=== PATIENT | male | born 1950 | race African-American/Black ===

== ENCOUNTER 2021-10-19 19:17 | Inpatient (IN) | payer MEDICARE, MEDICAID ==
[~2021-10-19] VITALS: Ht 177.8 cm; Wt 64.0 kg
[2021-10-19] MEDS ORDERED: LEVETIRACETAM 500MG PREMIX 100 ML IV ONE (20:00)
[2021-10-19] MEDS ORDERED: SODIUM CHLORIDE 0.9% 1,000 ML IV ONE ×2 (20:00)
[2021-10-19 21:02] LABS: BG BASE EXCESS 0.5 mmol/L (-2.0-2.0); BG CARBOXYHEMOGLOBIN 2.2 % (0.5-1.5); BG DEOXYHEMOGLOBIN 4.3 % (0.0-5.0); BG FRACTION INSPIRED OXYGEN 21; BG HCO3 ACT 25.9 mmol/L (22.0-26.0); BG METHEMOGLOBIN 0.2 % (0.0-1.5); BG OXYGEN SATURATION 95.6 % (92.0-98.5); BG OXYHEMOGLOBIN 93.3 % (94.0-97.0); BG PCO2 44.3 mmHg (35.0-45.0); BG PH 7.385 (7.350-7.450); BG PO2 81.6 mmHg (75.0-100.0); BG SAMPLE SITE RIGHT RADIAL; BG TOTAL HEMOGLOBIN 14.6 g/dL (12.0-18.0); BG TOTAL RESPIRATORY RATE 20 b/min; BG VENT MODE ROOM AIR
[2021-10-19 21:19] LABS: BASOPHILS % 0.4 % (0.0-2.0); CHLORIDE 107 mEq/L (98-107); EOSINOPHILS % 0.4 % (0.0-5.0); HEMOGLOBIN. 14.2 g/dL (14.0-18.0); LYMPHOCYTES % 11.8 % (20.0-50.0); MEAN CORPUSCULAR HEMOGLOBIN 31.4 pg (28.0-32.0); MEAN CORPUSCULAR VOLUME 94.7 fL (80.0-94.0); NEUTROPHILS % 78.4 % (40.0-76.0); RED BLOOD CELL COUNT 4.54 mill/uL (4.7-6.1); RED CELL DISTRIBUTION WIDTH 13.2 % (11.6-14.6)
[2021-10-19 21:24] LABS: ETHANOL BLOOD < 10 mg/dL
[2021-10-19 21:32] LABS: CARBAMAZEPINE < 0.5 ug/mL (4-12); PHENOBARBITAL < 2.1 ug/mL (15.0-40.0)
[2021-10-19 21:42] LABS: VALPROIC ACID < 3.0 ug/mL (50-100)
[2021-10-19 21:55] LABS: CLARITY URINE CLOUDY (CLEAR); COLOR URINE YELLOW (YELLOW); KETONES URINE TRACE (NEGATIVE); LEUKOCYTE ESTERASE URINE 2+ (NEGATIVE); NITRITE URINE POSITIVE (NEGATIVE); OCCULT BLOOD URINE TRACE (NEGATIVE); PH URINE 5.5 (4.5-8.0); PROTEIN URINE 1+ (NEGATIVE); SPECIFIC GRAVITY URINE 1.023 (1.005-1.030)
[2021-10-19 21:58] LABS: MEAN PLATELET VOLUME 8.3 fl (7.4-10.4); PLATELET 188 x1000/uL (130-400)
[2021-10-19 22:06] LABS: *COCAINE SCREEN URINE NEGATIVE (NEGATIVE)
[2021-10-19 22:07] LABS: *AMPHETAMINES SCREEN URINE NEGATIVE (NEGATIVE); *BARBITURATES SCREEN URINE NEGATIVE (NEGATIVE); CANNABINOID URINE SCREEN NEGATIVE (NEGATIVE); METHADONE URINE SCREEN NEGATIVE (NEGATIVE); PHENCYCLIDINE URINE SCREEN NEGATIVE (NEGATIVE)
[2021-10-19 22:08] LABS: *BENZODIAZEPINES SCREEN URINE PRESUMTIVE POSITIVE (NEGATIVE); OPIATES URINE SCREEN NEGATIVE (NEGATIVE)
[2021-10-20] MEDS ORDERED: HYDROCODONE/ACETAMINOPHEN 5/325MG TABLET PO PRN (00:45)
[2021-10-20] MEDS ORDERED: CLONIDINE 0.1MG TABLET PO PRN (00:45)
[2021-10-20] MEDS ORDERED: ONDANSETRON HCL 4MG/2ML INJ IV PRN (00:45)
[2021-10-20] MEDS ORDERED: MAGNESIUM/ALUMINUM HYDROXIDE/SIMETHICONE 30ML UDC PO PRN (00:45)
[2021-10-20] MEDS ORDERED: DOCUSATE SODIUM 100MG CAPSULE PO PRN (00:45)
[2021-10-20] MEDS ORDERED: ACETAMINOPHEN 325MG TABLET PO PRN (00:45)
[2021-10-20] MEDS ORDERED: LORAZEPAM 2MG/ML CPJ IV PRN (00:45)
[2021-10-20] MEDS ORDERED: IPRATROPIUM/ALBUTEROL 0.5-3(2.5)MG/3ML NEB NEB PRN (00:45)
[2021-10-20] MEDS ORDERED: NALOXONE HCL 0.4MG/ML VIAL IV PRN (01:30)
[2021-10-20 04:32] LABS: CHLORIDE 109 mEq/L (98-107)
[2021-10-20 04:42] LABS: CREATINE KINASE 754 IU/L (39-308)
[2021-10-20 04:43] LABS: CREATINE KINASE MB FRACTION 8.6 ng/mL (0.5-3.6)
[2021-10-20] MEDS: LEVETIRACETAM 500MG TABLET PO SCH ×2 (09:08→21:11)
[2021-10-20] MEDS: ENOXAPARIN 40MG/0.4ML SYR SUBCUT SCH (09:09)
[2021-10-20] MEDS ORDERED: CEFTRIAXONE 1 G PREMIX 50 ML IV SCH (15:30)
[2021-10-20] MEDS: SODIUM CHLORIDE 0.45% 1,000 ML IV SCH (15:39)
[2021-10-20 16:12] VITALS: BP 156/98
[2021-10-20] MEDS ORDERED: AMLO10TA80 PO (18:02)
[2021-10-20] MEDS ORDERED: OLAN20TA34 PO (18:02)
[2021-10-20] MEDS ORDERED: DIVA125C2 MT (18:02)
[2021-10-20 20:00] VITALS: BP_SYST 100; BP_SYST 153; BP_DIAS 69; BP_DIAS 75
[2021-10-21] VITALS: BP 156/94
[2021-10-21 01:00] LABS: CREATINE KINASE 811 IU/L (39-308)
[2021-10-21 01:01] LABS: CREATINE KINASE MB FRACTION 6.1 ng/mL (0.5-3.6)
[2021-10-21] MEDS: SODIUM CHLORIDE 0.45% 1,000 ML IV SCH ×2 (03:21→16:30)
[2021-10-21 03:59] VITALS: BP 150/80
[2021-10-21 08:00] VITALS: BP 154/99
[2021-10-21] MEDS: LEVETIRACETAM 500MG TABLET PO SCH ×2 (08:52→21:13)
[2021-10-21] MEDS: ENOXAPARIN 40MG/0.4ML SYR SUBCUT SCH ×2 (08:53→08:55)
[2021-10-21 12:00] VITALS: BP 151/98
[2021-10-21] MEDS: AMLODIPINE 10MG TABLET PO SCH (12:20)
[2021-10-21] MEDS: OLANZAPINE 10MG TABLET PO SCH (12:21)
[2021-10-21] MEDS: DIVALPROEX SODIUM 125MG DR TABLET PO SCH ×2 (12:21→21:13)
[2021-10-21 16:00] VITALS: BP 104/69
[2021-10-21] MEDS: CEFTRIAXONE 1,000 MG in DEXTROSE 5% WATER 50 ML IV SCH (16:31)
[2021-10-21 20:00] VITALS: BP 126/70
[2021-10-22] VITALS (7 sets, daily range): BP systolic 115–136; BP diastolic 76–91
[2021-10-22] MEDS: SODIUM CHLORIDE 0.45% 1,000 ML IV SCH ×2 (04:23→16:31)
[2021-10-22] MEDS: ENOXAPARIN 40MG/0.4ML SYR SUBCUT SCH (09:00)
[2021-10-22] MEDS: OLANZAPINE 10MG TABLET PO SCH (09:41)
[2021-10-22] MEDS: LEVETIRACETAM 500MG TABLET PO SCH ×2 (09:41→20:42)
[2021-10-22] MEDS: AMLODIPINE 10MG TABLET PO SCH (09:42)
[2021-10-22] MEDS: DIVALPROEX SODIUM 125MG DR TABLET PO SCH ×2 (09:44→20:42)
[2021-10-22] MEDS: CEFTRIAXONE 1,000 MG in DEXTROSE 5% WATER 50 ML IV SCH (16:00)
[2021-10-23 04:00] VITALS: BP 143/96
[2021-10-23] MEDS: SODIUM CHLORIDE 0.45% 1,000 ML IV SCH ×2 (05:45→18:15)
[2021-10-23 08:00] VITALS: BP 139/91
[2021-10-23] MEDS: OLANZAPINE 10MG TABLET PO SCH ×2 (09:00→09:05)
[2021-10-23] MEDS: DIVALPROEX SODIUM 125MG DR TABLET PO SCH ×3 (09:00→20:18)
[2021-10-23] MEDS: LEVETIRACETAM 500MG TABLET PO SCH ×3 (09:00→20:18)
[2021-10-23] MEDS: AMLODIPINE 10MG TABLET PO SCH ×2 (09:00→09:06)
[2021-10-23] MEDS: ENOXAPARIN 40MG/0.4ML SYR SUBCUT SCH ×2 (09:00→09:06)
[2021-10-23 12:00] VITALS: BP 133/79
[2021-10-23] MEDS: CHLORPROMAZINE HCL 10 MG TABLET PO SCH ×2 (15:16→20:18)
[2021-10-23 16:00] VITALS: BP 142/97
[2021-10-23] MEDS: CEFTRIAXONE 1,000 MG in DEXTROSE 5% WATER 50 ML IV SCH (16:00)
[2021-10-23 20:00] VITALS: BP 144/92
[2021-10-24] VITALS: BP 141/75
[2021-10-24 04:00] VITALS: BP 153/88
[2021-10-24] MEDS: CHLORPROMAZINE HCL 10 MG TABLET PO SCH ×2 (05:54→17:41)
[2021-10-24] MEDS: SODIUM CHLORIDE 0.45% 1,000 ML IV SCH ×2 (06:45→19:15)
[2021-10-24 08:02] VITALS: BP 162/99
[2021-10-24] MEDS: LEVETIRACETAM 500MG TABLET PO SCH ×2 (08:27→20:49)
[2021-10-24] MEDS: DIVALPROEX SODIUM 125MG DR TABLET PO SCH ×2 (08:27→20:49)
[2021-10-24] MEDS: OLANZAPINE 10MG TABLET PO SCH (08:27)
[2021-10-24] MEDS: ENOXAPARIN 40MG/0.4ML SYR SUBCUT SCH (08:27)
[2021-10-24] MEDS: AMLODIPINE 10MG TABLET PO SCH (08:27)
[2021-10-24 12:50] VITALS: BP 134/85
[2021-10-24 15:59] VITALS: BP 146/85
[2021-10-24 16:02] LABS: HEMOGLOBIN. 14.6 g/dL (14.0-18.0)
[2021-10-24 16:03] LABS: BASOPHILS % 0.4 % (0.0-2.0); EOSINOPHILS % 1.1 % (0.0-5.0); HEMATOCRIT. 43.7 % (42.0-52.0); LYMPHOCYTES % 30.2 % (20.0-50.0); MEAN CORPUSCULAR HEMOGLOBIN 31.7 pg (28.0-32.0); MEAN PLATELET VOLUME 8.2 fl (7.4-10.4); MONOCYTES % 13.7 % (2.0-8.0); NEUTROPHILS % 54.6 % (40.0-76.0); PLATELET 248 x1000/uL (130-400); RED CELL DISTRIBUTION WIDTH 13.3 % (11.6-14.6)
[2021-10-24 16:32] LABS: CHLORIDE 107 mEq/L (98-107)
[2021-10-24 20:00] VITALS: BP 132/91
[2021-10-25] VITALS: BP 131/86
[2021-10-25 04:00] VITALS: BP 148/95
[2021-10-25] MEDS: SODIUM CHLORIDE 0.45% 1,000 ML IV SCH ×2 (07:16→19:58)
[2021-10-25 07:30] VITALS: BP 157/93
[2021-10-25] MEDS: CHLORPROMAZINE HCL 10 MG TABLET PO SCH ×2 (08:02→18:32)
[2021-10-25] MEDS: OLANZAPINE 10MG TABLET PO SCH (08:02)
[2021-10-25] MEDS: DIVALPROEX SODIUM 125MG DR TABLET PO SCH ×2 (08:02→20:05)
[2021-10-25] MEDS: LEVETIRACETAM 500MG TABLET PO SCH ×2 (08:02→20:05)
[2021-10-25] MEDS: AMLODIPINE 10MG TABLET PO SCH (08:02)
[2021-10-25] MEDS: ENOXAPARIN 40MG/0.4ML SYR SUBCUT SCH (08:03)
[2021-10-25 12:33] VITALS: BP 142/97
[2021-10-25 15:31] VITALS: BP 126/84
[2021-10-25 20:00] VITALS: BP 138/87
[2021-10-26] VITALS: BP 119/78
[2021-10-26 04:00] VITALS: BP 128/86
[2021-10-26 08:08] VITALS: BP 131/94
[2021-10-26] MEDS: OLANZAPINE 10MG TABLET PO SCH (09:34)
[2021-10-26] MEDS: DIVALPROEX SODIUM 125MG DR TABLET PO SCH ×2 (09:34→22:40)
[2021-10-26] MEDS: LEVETIRACETAM 500MG TABLET PO SCH ×2 (09:34→22:40)
[2021-10-26] MEDS: CHLORPROMAZINE HCL 10 MG TABLET PO SCH ×2 (09:34→17:29)
[2021-10-26] MEDS: ENOXAPARIN 40MG/0.4ML SYR SUBCUT SCH (09:35)
[2021-10-26] MEDS: AMLODIPINE 10MG TABLET PO SCH (09:35)
[2021-10-26] MEDS: SODIUM CHLORIDE 0.45% 1,000 ML IV SCH (09:39)
[2021-10-26 12:00] VITALS: BP 123/93
[2021-10-26 16:00] VITALS: BP 119/84
[2021-10-26 20:00] VITALS: BP 126/80
== END 2021-10-26 22:55 | DRG 53 ==
LOC: ER 19:17 → 6WST 10-20 00:32 → ENRESERV 10-20 15:20
PROVIDERS: ADMIT Internal Medicine; ATTEND Internal Medicine
PROC: 4A10X4Z Monitoring of Central Nervous Electrical Activity, External Approach (ICD-10-PCS; principal; 2021-10-22)
DX: G40.89 Other seizures (principal); F20.0 Paranoid schizophrenia; D72.821 Monocytosis (symptomatic); F17.210 Nicotine dependence, cigarettes, uncomplicated; D72.829 Elevated white blood cell count, unspecified; R74.8 Abnormal levels of other serum enzymes; G24.01 Drug induced subacute dyskinesia; Z20.822 Contact with and (suspected) exposure to COVID-19
CPT/HCPCS: 36415; 36600; 70551; 71045; 80048; 80053; 80156; 80165; 80184; 80185; 80305; 80320; 81003; 82140; 82375; 82550; 82553; 82805; 82962; 83880; 84443; 84484; 85025; 87426; 93005; 95816; 97161; 97165; 99285; J0696; J1650; J1953; J7030; J7060; Q0161; G0480